=== PATIENT | male | born 1955 | race African-American/Black ===

== ENCOUNTER 2016-05-06 20:09 | Emergency (ER) | payer MEDICAID ==
[~2016-05-06] VITALS: Ht 160 cm; Wt 59.0 kg
[2016-05-06 20:19] VITALS: BP 142/95
[2016-05-06] MEDS ORDERED: CYCLOBENZAPRINE HCL 10 MG TAB PO ONE (23:30)
[2016-05-06] MEDS ORDERED: IBUPROFEN 600 MG TAB PO ONE (23:30)
== END 2016-05-06 23:53 | disposition home or self-care (01) ==
LOC: ER 20:20
DX: S46.311A Strain of muscle, fascia and tendon of triceps, right arm, initial encounter (principal); S13.4XXA Sprain of ligaments of cervical spine, initial encounter; R51 Headache; Z88.0 Allergy status to penicillin; V49.9XXA Car occupant (driver) (passenger) injured in unspecified traffic accident, initial encounter; Y93.89 Activity, other specified; Y99.8 Other external cause status; Y92.89 Other specified places as the place of occurrence of the external cause
CPT/HCPCS: 70450; 72040; 72100